=== PATIENT | female | born 1925 | race African-American/Black ===

== ENCOUNTER 2016-09-22 15:27 | Emergency (ER) | payer OTHER ==
[~2016-09-22] VITALS: Ht 152.4 cm; Wt 44.0 kg
[~2016-09-22 15:27] MED LIST: ACET325T9 PO; ASPI81TA50 PO; FERR-26 PO; LATA2.5D3 EACHEYE; LISI10TA2 PO; LISI1TAB7 PO; MECL25TA3 PO; VIT1CAPS12 PO; vitamin d
[2016-09-22 15:40] VITALS: BP 159/73
--- NOTE | 2016-09-22 18:30 | PHYS DOC ---
Past Medical History Past Medical History: Diverticulitis, Hypertension, Other Additional Past Medical Histor: vertigo Past Surgical History: Colectomy, Hysterectomy, Other Additional Past Surgical Histo: right hip fracture repair, colostomy and reversal Alcohol Use: None Drug Use: None Adult General Chief Complaint Chief Complaint: LOWEREXTREMITY INJURY [facility] HPI 89-year-old female who had a recent fall from standing with an injury to the right hip area. He was initially sore than improved our right thigh area is sore again. She denies hip pain or low back pain. Patient is able to bear weight without difficulty. Denies swelling or skin changes of the leg. No prior history of DVT or hypercoagulability. Review of Systems Review of Systems Constitutional: Denies fever or chills [] Eyes: Denies change in visual acuity, redness, or eye pain [] HENT: Denies nasal congestion or sore throat [] Respiratory: Denies cough or shortness of breath [] Cardiovascular: No additional information not addressed in HPI [] GI: Denies abdominal pain, nausea, vomiting, bloody stools or diarrhea [] : Denies dysuria or hematuria [] Musculoskeletal: Denies back pain or joint pain [] Integument: Denies rash or skin lesions [] Neurologic: Denies headache, focal weakness or sensory changes [] Endocrine: Denies polyuria or polydipsia [] Allergies Allergies Allergies Coded Allergies Type Severity Reaction Last Updated Verified grape Allergy Intermediate rash 03/19/15 Yes azithromycin Allergy Unknown 02/29/16 Yes Physical Exam Physical Exam Well-appearing elderly patient in no acute distress normal-appearing right lower extremity. Nontender stable pelvis with no bony tenderness of hip or femur. No cords appreciated in the right lower extremity. Soft compartments. Neurovascularly intact distally. Normal lower extremity exam Constitutional: Well developed, well nourished, no acute distress, non-toxic appearance. [] HENT: Normocephalic, atraumatic, bilateral external ears normal, oropharynx moist, no oral exudates, nose normal. [] Eyes: PERRLA, EOMI, conjunctiva normal, no discharge. [] Neck: Normal range of motion, no tenderness, supple, no stridor. [] Cardiovascular:Heart rate regular rhythm, no murmur [] Lungs & Thorax: Bilateral breath sounds clear to auscultation [] Abdomen: Bowel sounds normal, soft, no tenderness, no masses, no pulsatile masses. [] Skin: Warm, dry, no erythema, no rash. [] Back: No tenderness, no CVA tenderness. [] Extremities: No tenderness, no cyanosis, no clubbing, ROM intact, no edema. [] Neurologic: Alert and oriented X 3, normal motor function, normal sensory function, no focal deficits noted. [] Psychologic: Affect normal, judgement normal, mood normal. [] Current Patient Data Vital Signs Vital Signs Date Time Temp Pulse Resp B/P (MAP) Pulse Ox O2 Delivery O2 Flow Rate FiO2 09/22/16 15:40 98.1 93 18 159/73 (101) 99 Room Air 98.1 EKG EKG [] Radiology/Procedures Radiology/Procedures [] Course & Med Decision Making Course & Med Decision Making Pertinent Labs and Imaging studies reviewed. (See chart for details) Signs and symptoms consistent with right lower extremity pain secondary to recent contusion after fall. Thigh is normal-appearing with no hematoma or bony tenderness. No erythema skin changes or crepitus/fluctuance. Nontender/ stable pelvis. X-rays pelvis and right femur unremarkable. Patient is able emulate without difficulty. Doppler of the right lower extremity negative for DVT. No further workup or treatment indicated at this time. Patient agrees with outpatient follow-up and strict return precautions given [] Dragon Disclaimer Dragon Disclaimer This electronic medical record was generated, in whole or in part, using a voice recognition dictation system. Departure Departure Impression: Primary Impression: Contusion of right thigh Additional Impression: Pain of right lower extremity Disposition: 01 HOME, SELF-CARE Condition: GOOD Referrals: MATT HADDAD MD (PCP) Patient Instructions: Contusion Additional Instructions: It appears that you have a bruise of her right thigh area. Your x-rays of the pelvis and right femur or thigh bone are normal today. We have no evidence of fracture or broken bone. An ultrasound of your leg shows no blood clot. Take ibuprofen and Tylenol as needed for discomfort and follow up with your doctor tomorrow. Return immediately for any severe or worsening symptoms Problem Qualifiers ZAFAR ALVAREZ MD Sep 22, 2016 18:30
--- NOTE | 2016-09-22 18:51 | RAD ---
Examination: Lower Extremity Venous Doppler Ultrasound History: Right lower extremity pain Comparison: None Procedure: Valle scale, color flow 2D and spectal waveform analysis images are obtained with and without compression in the area of the common femoral vein, superficial femoral vein - femoral vein junction, main femoral vein (superficial femoral vein) and popliteal vein. Veins of the proximal calf are also imaged. Findings: There is normal duplex flow, color flow and compressibility of all visualized vein segments. No evidence of deep venous thrombus is present. There is a 3.0 cm fluid identified in the popliteal fossa region probably popliteal cyst or hematoma or muscle injury. Impression: 1. No evidence of DVT. 2 There is a 3.0 cm fluid identified in the popliteal fossa region probably popliteal cyst or hematoma or muscle injury. Electronically signed by: Peng Reynolds MD (09/22/2016 6:48 PM) [facility]
--- NOTE | 2016-09-23 09:06 | RAD ---
Examination: Single frontal view the pelvis History: History of trauma, fall, pain in the pelvis the right side. Comparison: None available Findings: Right femoral prosthesis in place. Mild degenerative changes identified in the left hip joint. There is no obvious acute fracture or dislocation identified. Osseous demineralization limits evaluation. Impression: Right femoral prosthesis is in place. No acute osseous findings.
--- NOTE | 2016-09-23 09:07 | RAD ---
Examination: 2 views of the right femur History: History of trauma, fall, pain. Comparison: None available Findings: The right femoral prosthesis in place. No acute fracture identified. Minimal calcification identified in the medial, lateral meniscus region of the knee probably chondrocalcinosis. Impression: No acute osseous findings.
== END 2016-09-22 18:43 | disposition home or self-care (01) ==
LOC: ER 15:27
DX: S70.11XA Contusion of right thigh, initial encounter (principal); S79.911A Unspecified injury of right hip, initial encounter; I10 Essential (primary) hypertension; Z90.49 Acquired absence of other specified parts of digestive tract; Z90.710 Acquired absence of both cervix and uterus; Z93.3 Colostomy status; Z98.890 Other specified postprocedural states; Z88.1 Allergy status to other antibiotic agents; Z91.018 Allergy to other foods; X58.XXXA Exposure to other specified factors, initial encounter; Y99.8 Other external cause status; Y93.89 Activity, other specified; Y92.89 Other specified places as the place of occurrence of the external cause
CPT/HCPCS: 72170; 73552; 93971; 99284-25